=== PATIENT | male | born 1960 | race Two or more races ===

== ENCOUNTER 2024-09-16 11:59 | Emergency (ER) | payer MEDICAID, SELFPAY ==
[2024-09-16 12:14] VITALS: BP 125/76; PULSE 81; RESP 16; TEMP 36.9; O2SAT 99; BMI 25.0
--- NOTE | 2024-09-16 12:59 | PD.EDMALE ---
ED Male Genitalurinary RME/HPI General Chief complaint: Urogenital-Male Stated complaint: SORES ON PENIS X 3 DAYS Time Seen by Provider: 09/16/24 12:13 Arrival date/time: 09/16/24 11:59 64-year-old male presents to the emergency department complaint of painful sores to the tip of his penis patient reports symptoms ongoing for the last 3 days patient reports no fever nausea or vomiting no dysuria Limitations: no limitations Related Data Home Medications ?Medication ?Instructions ?Recorded ?Confirmed Hydrocodone/Acetaminophen * (NORCO 1 tab PO Q6H PRN PAIN #0 tabs 08/09/16 5/325 *) ciprofloxacin HCl 500 mg tablet 500 mg PO BID #0 tabs 08/09/16 lisinopril 10 mg tablet 10 mg PO QDAY #0 tabs 08/09/16 metformin 1,000 mg tablet 1,000 mg PO BID #0 tabs 08/09/16 (Glucophage) Previous Rx's ?Medication ?Instructions ?Recorded Hydrocodone/Acetaminophen * (NORCO 1 tab PO Q6H PRN pain #28 tabs 08/09/16 5/325 *) hydrocodone 5 mg-acetaminophen 325 1 tab PO BID PRN pain #10 tabs 05/21/24 mg tablet acetaminophen 500 mg capsule 1,000 mg (2 x 500 mg) PO Q8HR PRN 06/13/24 pain #60 caps naproxen 500 mg tablet 500 mg PO BID PRN pain #30 tabs 06/13/24 nystatin 100,000 unit/gram topical 1 applic topical BID #30 grams 09/16/24 cream valacyclovir 1 gram tablet 1,000 mg PO BID 7 days #14 tabs 09/16/24 Allergies Allergy/AdvReac Type Severity Reaction Status Date / Time NKA* Allergy Uncoded 09/16/24 12:00 Review of Systems Review of Systems Systems Reviewed: All systems reviewed, normal except as documented Constitutional Constitutional: Reports system reviewed and no additional complaints, except as documented, Denies fever(s) and Denies headache(s) Eyes Eyes: Reports system reviewed and no additional complaints, except as documented and Denies blurry vision ENT Ears, Nose, Mouth, and Throat: Reports system reviewed and no additional complaints, except as documented, Denies headache(s), Denies nasal congestion and Denies nasal discharge Cardiovascular Cardiovascular: Reports system reviewed and no additional complaints, except as documented, Denies chest pain and Denies dyspnea Respiratory Respiratory: Reports system reviewed and no additional complaints, except as documented, Denies chest congestion, Denies cough and Denies dyspnea Gastrointestinal Gastrointestinal: Reports system reviewed and no additional complaints, except as documented and Denies abdominal pain Genitourinary Genitourinary: Reports system reviewed and no additional complaints, except as documented, Denies difficulty urinating and Reports other (Source of the patient's) Integumentary/Breasts Skin/Breast: Reports system reviewed and no additional complaints, except as documented and Denies rash Neurologic Neurologic: Reports system reviewed and no additional complaints, except as documented, Reports as per HPI and Denies headache(s) Past Medical History Past Medical History CARDIAC: Negative Congestive Heart Failure RESPIRATORY: Negative Chronic Obstructive Pulmonary Disease (COPD) GENITOURINARY: Negative Renal Disease ENDOCRINE: Negative Diabetes Mellitus Type 1 or Diabetes Mellitus Type 2 Social History SMOKING STATUS: Never smoker ED Exam General Limitations: Present no limitations General appearance: Present alert and in no apparent distress Head Head exam: Present atraumatic Eye Eye exam: Present normal appearance, PERRL and EOMI ENT ENT exam: Present normal exam, normal oropharynx and mucous membranes moist Neck Neck exam: Present normal inspection, full ROM and trachea midline Chest Chest inspection: Present normal inspection and symmetric chest wall rise Respiratory Respiratory exam: Present normal lung sounds bilaterally Cardiovascular Cardiovascular exam: Present regular rate, normal rhythm and normal heart sounds Abdominal Exam Abdominal exam: Present soft and normal bowel sounds exam: Present normal testicular lie and other (Penile sores); Absent testicular tenderness, urethral discharge, scrotal swelling or circumcised Extremities Exam Extremities exam: Present normal inspection and full ROM Back Exam Back exam: Present normal inspection and full ROM Neurological Exam Neurological exam: Present alert, oriented X3 and CN II-XII intact Psychiatric Psychiatric exam: Present normal affect and normal mood Skin Skin exam: Present warm, dry, intact and normal color Course Quality Measures none Vital Signs Vital signs: Vital Signs Temperature 98.5 F 09/16/24 12:14 Pulse Rate 81 09/16/24 12:14 Respiratory Rate 16 09/16/24 12:14 Blood Pressure 125/76 09/16/24 12:14 Pulse Oximetry (%) 99 09/16/24 12:14 Oxygen Delivery Method Room Air 09/16/24 12:14 O2 saturation 99% r/a wnl Urogenital - Male MDM Narrative MDM Narrative:: 64-year-old male presents to the emergency department complaint of painful sores to the tip of his penis patient reports symptoms ongoing for the last 3 days patient reports no fever nausea or vomiting no dysuria Patient reports similar episodes in the past with painful sores on his penis Patient assures me that he does not have sex and there is no chance of STD I cannot definitively say what the sores are but they do look like herpetic lesions Patient be treated with valacyclovir as well as antifungals I explained to the patient he should have HSV testing as well as syphilis testing by his primary care doctor patient states understanding For emergent concerns patient struck to return immediately Patient data External records reviewed:: [facility] previous records Clinical information provided by:: patient Social determinants that could affect healthcare access:: none Patient has the following chronic illnesses:: See history How is presenting disease/condition affected by chronic disease/condition?: caused by Evaluation data The following diagnostics were reviewed and interpreted by me:: other (specify) (N/A) Lab and/or radiology exams considered but not ordered:: Consider not ordered Interpretation Summary: N/A Medications / Prescriptions Medications or Prescriptions considered but not ordered:: Given Medication administrations:: Given Consultations Consultation(s) initiated? (list below): No Diagnosis Urogenital Male Differential Diagnosis: urinary tract infection, urethritis, epididymitis, prostatitis and other (Herpes, syphilis, candidiasis) Most likely diagnosis given after review of the tests above:: Penile sores Admission Indicated Admission indicated?: not indicated Admission Request Was there a request for admission?: No Disposition Plan Disposition Plan: Discharge Discharge Attestation Discharge Attestation: The patient and all family members were given an opportunity to ask questions and understood the discharge instructions. Discharge instructions specifically effects, indications for sooner follow up or return to the emergency department, and the expected course of current diagnosis. Patient condition: Stable Discharge Plan Plan Patient Disposition: HOME (Self Care) Disposition Comment: Stable Prescriptions/Referrals Prescriptions/Med Rec: New valacyclovir 1 gram tablet 1,000 mg PO BID 7 Days Qty: 14 0RF nystatin 100,000 unit/gram cream 1 applic topical BID Qty: 30 0RF No Action ciprofloxacin HCl 500 MG tablet 500 mg PO BID Qty: 0 metformin [Glucophage] 1,000 MG tablet 1,000 mg PO BID Qty: 0 lisinopril 10 MG tablet 10 mg PO QDAY Qty: 0 Hydrocodone/Acetaminophen * (NORCO 5/325 *) 1 TAB tablet 1 tab PO Q6H PRN (Reason: PAIN) Qty: 0 Hydrocodone/Acetaminophen * (NORCO 5/325 *) 1 TAB tablet 1 tab PO Q6H PRN (Reason: pain) Qty: 28 0RF hydrocodone-acetaminophen 5-325 mg tablet 1 tab PO BID MDD 2 PRN (Reason: pain) Qty: 10 0RF acetaminophen 500 mg capsule 1,000 mg PO Q8HR PRN (Reason: pain) Qty: 60 0RF naproxen 500 mg tablet 500 mg PO BID PRN (Reason: pain) Qty: 30 0RF Problem List Clinical Impression: Penile rash Patient/Caregiver Discharge Instructions Additional Instructions: Please follow-up with primary care doctor for outpatient lab work for worsening symptoms return immediately Print Language: Bengali Stand Alone Forms: Brandy Award Info., Patient Portal Info Letter Attestation Attestation The patient was seen by the midlevel practitioner. I, the co-signing physician, was present during the entire ER visit. While I did not physically examine the patient, I was available for consultation as needed.
== END 2024-09-16 13:07 | disposition home or self-care (01) ==
LOC: SERX 13:42
PROVIDERS: Emergency Provider Emergency Medicine
DX: R21 Rash and other nonspecific skin eruption (principal)
CPT/HCPCS: 99281

== ENCOUNTER 2025-09-23 16:28 | Emergency (ER) | payer MEDICAID, SELFPAY ==
[2025-09-23 17:14] VITALS: BP 165/87; PULSE 67; RESP 18; TEMP 37.1; O2SAT 97; BMI 28.9
--- NOTE | 2025-09-23 17:16 | EDNOTE_ITS ---
ED Male Genitalurinary RME/HPI General Chief complaint: Urogenital-Male Stated complaint: DYSURIA, PENILE SWELLING Time Seen by Provider: 09/23/25 17:16 Source: patient Arrival date/time: 09/23/25 16:28 65-year-old male with no known medical history presents to the emergency room with a chief complaint of a rash to his penis x 1 week Mode of arrival: ambulatory Limitations: no limitations Related Data Home Medications ?Medication ?Instructions ?Recorded ?Confirmed Hydrocodone/Acetaminophen * (NORCO 1 tab PO Q6H PRN PA IN #0 tabs 08/09/16 5/325 *) ciprofloxacin HCl 500 mg tablet 500 mg PO BID #0 tabs 08/09/16 lisinopril 10 mg tablet 10 mg PO QDAY #0 tabs metformin 1,000 mg tablet 1,000 mg PO BID #0 tabs 07/30 11/14 (Glucophage) Previous Rx's ?Medication ?Instructions ?Recorded Hydrocodone/Acetaminophen * (NORCO 1 tab PO Q6H PRN pa in #28 tabs 08/09/16 5/325 *) hydrocodone 5 mg-acetaminophen 325 1 tab PO BID PRN pa in #10 tabs 05/21/24 mg tablet acetaminophen 500 mg capsule 1,000 mg (2 x 500 mg) PO Q8HR PRN 06/13/24 pain #60 caps naproxen 500 mg tablet 500 mg PO BID PRN pain #30 t abs 06/13/24 nystatin 100,000 unit/gram topical 1 applic topical BI D #30 grams 09/16/24 cream clotrimazole 1 % topical cream 1 applic topical BID 4 weeks #30 09/23/25 grams valacyclovir 1 gram tablet 1,000 mg PO Q8H 7 days #21 tabs 09/23/25 Allergies Allergy/AdvReac Type Severity Reaction Status Date / Time No Known Allergies Allergy Verified 09/23/25 16:31 Review of Systems Review of Systems Systems Reviewed: All systems reviewed, normal except as documented Constitutional Constitutional: Reports system reviewed and no additional complaints, except as documented, Denies fatigue, Denies fever(s), Denies headache(s) and Denies weakness Eyes Eyes: Reports system reviewed and no additional complaints, except as documented, Denies blurry vision and Denies change in vision ENT Ears, Nose, Mouth, and Throat: Reports system reviewed and no additional complaints, except as documented, Denies otalgia, Denies headache(s), Denies nasal congestion, Denies throat swelling and Denies vertigo Cardiovascular Cardiovascular: Reports system reviewed and no additional complaints, except as documented, Denies chest pain, Denies dyspnea and Denies dyspnea on exertion Respiratory Respiratory: Reports system reviewed and no additional complaints, except as documented, Denies chest congestion, Denies cough, Denies dyspnea, Denies dyspnea on exertion and Denies wheezing Gastrointestinal Gastrointestinal: Reports system reviewed and no additional complaints, except as documented, Denies abdominal pain, Denies cramping, Denies nausea and Denies vomiting Genitourinary Genitourinary: Reports system reviewed and no additional complaints, except as documented, Denies dysuria and Denies hematuria Musculoskeletal Musculoskeletal: Reports system reviewed and no additional complaints, except as documented and Denies back pain Integumentary/Breasts Skin/Breast: Reports system reviewed and no additional complaints, except as documented, Reports pruritus, Reports rash and Denies wounds Neurologic Neurologic: Reports system reviewed and no additional complaints, except as documented, Denies confusion, Denies headache(s), Denies lack of coordination, Denies vertigo and Denies weakness Psychiatric Psychiatric: Reports system reviewed and no additional complaints, except as documented, Denies anxiety, Denies confusion, Denies depression, Denies paranoia, Denies suicidal ideation and Denies tactile hallucinations Endocrine Endocrine: Reports system reviewed and no additional complaints, except as documented and Denies fatigue Hematologic/Lymphatic Hematologic/Lymphatic: Reports system reviewed and no additional complaints, except as documented and Denies lymphadenopathy Allergic/Immunologic Allergic/Immunologic: Reports system reviewed and no additional complaints, except as documented, Denies throat swelling, Denies urticaria and Denies wheezing Past Medical History Past Medical History CARDIAC: Negative Congestive Heart Failure RESPIRATORY: Negative Chronic Obstructive Pulmonary Disease (COPD) GENITOURINARY: Negative Renal Disease ENDOCRINE: Negative Diabetes Mellitus Type 1 or Diabetes Mellitus Type 2 Social History SMOKING STATUS: Never smoker ED Exam General Limitations: Present no limitations General appearance: Present alert and in no apparent distress Head Head exam: Present atraumatic Eye Eye exam: Present normal appearance, PERRL and EOMI ENT ENT exam: Present normal exam, normal oropharynx and mucous membranes moist Neck Neck exam: Present normal inspection, full ROM and trachea midline Chest Chest inspection: Present normal inspection and symmetric chest wall rise Respiratory Respiratory exam: Present normal lung sounds bilaterally Cardiovascular Cardiovascular exam: Present regular rate, normal rhythm and normal heart sounds Abdominal Exam Abdominal exam: Present soft and normal bowel sounds exam: Present normal testicular lie; Absent testicular tenderness, urethral discharge, scrotal swelling or circumcised Expanded Exam exam: Present penile swelling, lesions, erythema, balanitis and ulcerations; Absent phimosis, paraphimosis, induration, priapism, inguinal hernia or inguinal lymphadenopathy Extremities Exam Extremities exam: Present normal inspection and full ROM Back Exam Back exam: Present normal inspection and full ROM Neurological Exam Neurological exam: Present alert, oriented X3 and CN II-XII intact Psychiatric Psychiatric exam: Present normal affect and normal mood Skin Skin exam: Present warm, dry, intact and normal color Course Quality Measures none Orders Category Date Time Status Fluconazole [Diflucan] Med 09/23/25 17:13 Discontinued 200 mg PO X1 ONE Vital Signs Vital signs: Vital Signs Temperature 98.8 F 09/23/25 17:14 Pulse Rate 67 09/23/25 17:14 Respiratory Rate 18 09/23/25 17:14 Blood Pressure 165/87 H 09/23/25 17:14 Pulse Oximetry (%) 97 09/23/25 17:14 Oxygen Delivery Method Room Air 09/23/25 17:14 Urogenital - Male MDM Narrative MDM Narrative:: 65-year-old male with no known medical history presents to the emergency room with a chief complaint of a rash to his penis x 1 week Patient is hemodynamically stable and in no apparent distress. He is not tachycardic not tachypneic and afebrile Physical examination shows multiple small ulcerations to the penis. These ulcerations and lesions are consistent with either herpes or a fungal infection. Patient states he has not been sexually active for over a decade. However patient does state that the medication that was given to him in his prior visit significantly helped with the symptoms. The medication that was given to him in his last visit was valacyclovir. Patient states that he will follow-up with his primary care provider. Patient states he does not want any blood work and just wants the medication that was last given to him. Patient was discharged and educated to follow-up with primary care provider in the next 24 to 48 hours and return to the emergency room for any evidence of worsening signs or symptoms Patient data External records reviewed:: [facility] previous records Clinical information provided by:: patient Social determinants that could affect healthcare access:: none Patient has the following chronic illnesses:: No chronic illness How is presenting disease/condition affected by chronic disease/condition?: no chronic disease Evaluation data The following diagnostics were reviewed and interpreted by me:: lab results and radiology exam(s) Lab and/or radiology exams considered but not ordered:: Labs and radiology exams considered and ordered Interpretation Summary: N/A Medications / Prescriptions Medications or Prescriptions considered but not ordered:: Medication given Medication administrations:: Medication Administration History Discontinued Medications Fluconazole (Fluconazole 100 Mg Tablet) 200 mg PO X1 ONE Stop: 09/23/25 17:14 Last Admin: 09/23/25 17:26 Dose: 200 mg Documented By: DL Medication given Consultations Consultation(s) initiated? (list below): No Diagnosis Urogenital Male Differential Diagnosis: urinary tract infection, epididymitis and other (Penile rash) Most likely diagnosis given after review of the tests above:: Penile rash Admission Indicated Admission indicated?: not indicated Admission Request Was there a request for admission?: No Disposition Plan Disposition Plan: Discharge Discharge Attestation Discharge Attestation: The patient and all family members were given an opportunity to ask questions and understood the discharge instructions. Discharge instructions specifically effects, indications for sooner follow up or return to the emergency department, and the expected course of current diagnosis. Patient condition: Stable Discharge Plan Plan Patient Disposition: HOME (Self Care) Discharge Disposition comment: Stable Prescriptions/Referrals Prescriptions/Med Rec: New valacyclovir 1 gram tablet 1,000 mg PO Q8H 7 Days Qty: 21 0RF clotrimazole 1 % cream 1 applic topical BID 28 Days Qty: 30 0RF No Action ciprofloxacin HCl 500 MG tablet 500 mg PO BID Qty: 0 metformin [Glucophage] 1,000 MG tablet 1,000 mg PO BID Qty: 0 lisinopril 10 MG tablet 10 mg PO QDAY Qty: 0 Hydrocodone/Acetaminophen * (NORCO 5/325 *) 1 TAB tablet 1 tab PO Q6H PRN (Reason: PAIN) Qty: 0 Hydrocodone/Acetaminophen * (NORCO 5/325 *) 1 TAB tablet 1 tab PO Q6H PRN (Reason: pain) Qty: 28 0RF nystatin 100,000 unit/gram cream 1 applic topical BID Qty: 30 0RF hydrocodone-acetaminophen 5-325 mg tablet 1 tab PO BID MDD 2 PRN (Reason: pain) Qty: 10 0RF acetaminophen 500 mg capsule 1,000 mg PO Q8HR PRN (Reason: pain) Qty: 60 0RF naproxen 500 mg tablet 500 mg PO BID PRN (Reason: pain) Qty: 30 0RF Problem List Clinical Impression: Penile rash Patient/Caregiver Discharge Instructions Additional Instructions: Please follow-up with your primary care provider in the next 24 to 48 hours The rash in your penis appears either fungal or herpetic. Please have your primary care provider do HPV testing as well as syphilis testing For any evidence of worsening signs or symptoms return to emergency room immediately Print Language: Prydeinig Stand Alone Forms: Brandy Award Info., Work/School Release, Patient Portal Info Letter PA/X [employer] Supervising Physician PA/AGNES Supervising Physician: Dr. Schofield
[2025-09-23] MEDS: FLUCONAZOLE 100 MG TABLET 200 MG PO (17:26)
== END 2025-09-23 17:33 | disposition home or self-care (01) ==
PROVIDERS: Emergency Provider Emergency Medicine; PCP Registered Nurse
DX: R21 Rash and other nonspecific skin eruption (principal)
CPT/HCPCS: 99281; A9270